=== PATIENT | male | born 1965 | race Caucasian/White ===

== ENCOUNTER 2019-05-01 20:28 | Emergency (ER) | payer SELFPAY ==
[2019-05-01] MEDS ORDERED: ASPIRIN 81 MG TABLET, CHEWABLE PO ONE (20:56)
--- NOTE | 2019-05-01 20:59 | ER Document Report ---
ED Cardiac - General Chief Complaint: Chest Pain Stated Complaint: CHEST PAIN Time Seen by Provider: 05/01/19 20:49 Primary Care Provider: ANNELISE YOUNG MD [ACTIVE STAFF] - 05/03/19 Notes: Patient is a 54-year-old male that comes to the emergency department by EMS for chief complaint of chest pain. Pain is in the left side of his chest and goes towards his shoulder. He states this happened prior to arrival when he was walking. He states he felt slightly nauseated but denies shortness of breath, dizziness, abdominal pain, flank pain. He states that his chest pain has been intermittent. He states he has a history of GA with stents and 1991 in 1995, he is on Plavix, metoprolol, Lipitor, aspirin. He states he follows with medical reimbursement manager Dr. Young. He states he chews dip but denies alcohol or recrea tional drugs. He states that he was released from [facility] yesterday after he had been admitted for chest pain rule out. He did not have a stress test or cardiac catheterization. He states he has not had either of these in over 5 years. TRAVEL OUTSIDE OF THE [place] IN LAST 30 DAYS: No - Related Data Allergies/Adverse Reactions: Penicillins Allergy (Verified 09/12/15 18:47) Past Medical History - General Information source: Patient - Social History Smoking Status: Never Smoker Frequency of alcohol use: None Drug Abuse: None Lives with: Family Family History: CAD, Hypertension - Past Medical History Cardiac Medical History: Reports: Hx Coronary Artery Disease, Hx Hypercholesterolemia, Hx Hypertension Psychiatric Medical History: Denies: Hx Depression Past Surgical History: Reports: Hx Cardiac Surgery - Stent times 3 - Immunizations Hx Diphtheria, Pertussis, Tetanus Vaccination: Yes Hx Pneumococcal Vaccination: 07/27/15 Review of Systems - Review of Systems Constitutional: See HPI EENT: No symptoms reported Cardiovascular: See HPI Respiratory: No symptoms reported Gastrointestinal: No symptoms reported Genitourinary: No symptoms reported Male Genitourinary: No symptoms reported Musculoskeletal: No symptoms reported Skin: No symptoms reported Hematologic/Lymphatic: No symptoms reported Neurological/Psychological: No symptoms reported Physical Exam - Vital signs Vitals: Resp BP Pulse Ox 19 104/84 100 05/01/19 20:32 05/01/19 20:32 05/01/19 20:32 - Notes Notes: GENERAL: Disheveled and dirty, wet from the rain, however does not appear to be in any distress HEAD: Normocephalic, atraumatic. EYES: Pupils equal, round, and reactive to light. Extraocular movements intact. ENT: Oral mucosa moist, tongue midline. Oropharynx unremarkable. Airway patent. Nares patent, no nasal septal hematoma, TM's intact. NECK: Full range of motion. Supple. Trachea midline. LUNGS: Clear to auscultation bilaterally, no wheezes, rales, or rhonchi. No respiratory distress. HEART: Regular rate and rhythm. No murmur ABDOMEN: Soft, non-tender. Non-distended. Bowel sounds present in all 4 quadrants. GENITOURINARY: Deferred EXTREMITIES: Moves all 4 extremities spontaneously. No edema, normal radial and dorsalis pedis pulses bilaterally. No cyanosis. BACK: no cervical, thoracic, lumbar midline tenderness. No saddle anesthesia, normal distal neurovascular exam. Moves all extremities in full range of motion. NEUROLOGICAL: Alert and oriented x3. Normal speech. Cranial nerves II through XII grossly intact. PSYCH: Normal affect, normal mood. SKIN: Warm, dry, normal turgor. No rashes or lesions noted. Course - Re-evaluation Re-evalutation: 05/01/19 22:13 Records show that in 2014 he had a normal stress test with Dr. Young but because of continued chest pain he was transferred to tertiary center for cardiac catheterization. Patient is not clearly remembering his history. Patient is disheveled, appears possibly homeless but he insists that he lives with his sons. Chest x-ray unremarkable. Patient reevaluated to see if he is in pain but he was soundly sleeping. Patient has negative work-up again including 2 more negative troponins. I reevaluated him and he is chest pain-free. He did have elevated CK which is most likely from his walking earlier, he was given IV fluids. He is tolerating fluids well. His vital signs are unremarkable. He got minimally hypotensive when he fell asleep. He states that he has not seen Dr. Young recently but he did see him in the past. Patient just completed an admission with chest pain rule out within the past day. Patient tells me that he called when he "got caught walking in the rain". I did discuss with Dr. Lazo. Recommendation is for patient to follow-up with Dr. Young on Friday for additional evaluation and management and for patient return if he has return or worsening symptoms. I discussed this in detail with patient. Patient does state understanding and agreement with this plan. - Vital Signs Vital signs: Temp Pulse Resp BP Pulse Ox 14 111/62 96 05/02/19 01:01 05/02/19 01:01 05/02/19 01:01 - Laboratory Result Diagrams: 05/01/19 21:57 05/01/19 21:57 Laboratory results interpreted by me: 05/01/19 05/01/19 21:57 21:57 RBC 4.27 L Potassium 3.4 L Creatine Kinase 870 H - EKG Interpretation by Me Additional EKG results interpreted by me: EKG reading that it is defective, however I did check the leads myself in the right and left arm leads were not reversed. Sinus rhythm at a rate of 66. There is an inverted T wave in lead II but no T wave inversions or ST segment changes in consecutive leads.) RBBB but this was present on previous EKG. QTc of 453. Normal axis. Discharge - Discharge Clinical Impression: Elevated CK Chest pain Qualifiers: Chest pain type: unspecified Qualified Code(s): R07.9 - Chest pain, unspecified Condition: Stable Disposition: HOME, SELF-CARE Additional Instructions: Your work-up did not show evidence of damage to your heart. Please follow-up with Dr. Young on Friday for additional evaluation and management. Call the listed referral. You did have muscle protein in your bloodstream, your given IV fluids for this. You need to continue to hydrate at home. Follow-up with primary care for additional management. Return if you worsen including passing out, return for severe pain, difficulty breathing, fever, or any other concerning symptoms. Referrals: ANNELISE YOUNG MD [ACTIVE STAFF] - 05/03/19
--- NOTE | 2019-05-01 21:43 | RADIOLOGY REPORT (SQ) ---
EXAM DESCRIPTION: XR CHEST 1 VIEW COMPLETED DATE/TME: 05/01/2019 20:57 CLINICAL HISTORY: 54 years, Male, chest pain COMPARISON: X-ray chest 09/12/2015 NUMBER OF VIEWS: TECHNIQUE: LIMITATIONS: None. FINDINGS: There is possible emphysema. No evidence of pulmonary infiltrate or pleural effusion. The heart is normal in size. Pulmonary vascularity appears normal. The mediastinum is unremarkable. There is a left-sided dual-chamber pacemaker, a new finding, as compared with the prior study. Once again seen is a left-sided loop recorder device. IMPRESSION: Possible emphysema. copyright 2010 [email or web address]- All Rights Reserved
[2019-05-01 22:11] LABS: ABSOLUTE EOSINOPHILS # (AUTO) 0.3 10^3/uL (0.0-0.6); ABSOLUTE LYMPHOCYTES (AUTO) 1.2 10^3/uL (0.5-4.7); BASOPHILS % (AUTO) 0.6 % (0-2); HEMATOCRIT 39.9 % (37.9-51.0); HEMOGLOBIN 13.5 g/dL (13.5-17.0); LYMPHOCYTES % (AUTO) 15.5 % (13-45); MEAN CORPUSCULAR HEMOGLOBIN 31.7 pg (27.0-33.4); MEAN CORPUSCULAR HGB CONC 33.9 g/dL (32.0-36.0); MEAN CORPUSCULAR VOLUME 93 fl (80-97); MONOCYTES % (AUTO) 12.9 % (3-13); PLATELET COUNT 209 10^3/uL (150-450); RED BLOOD COUNT 4.27 10^6/uL (4.35-5.55); TOTAL CELLS COUNTED % (AUTO) 100 %; WHITE BLOOD COUNT 7.4 10^3/uL (4.0-10.5)
[2019-05-01 22:26] LABS: ALANINE AMINOTRANSFERASE 42 U/L (21-72); ALBUMIN 4.6 g/dL (3.5-5.0); ALKALINE PHOSPHATASE 65 U/L (38-126); ANION GAP 12 (5-19); ASPARTATE AMINO TRANSFERASE 59 U/L (17-59); BILIRUBIN,DIRECT 0.3 mg/dL (0.0-0.4); BILIRUBIN,TOTAL 1.1 mg/dL (0.2-1.3); BLOOD UREA NITROGEN 13 mg/dL (7-20); CALCIUM 9.4 mg/dL (8.4-10.2); CARBON DIOXIDE 27 mmol/L (22-30); CHLORIDE 102 mmol/L (98-107); CREATINE KINASE 870 U/L (55-170); GLUCOSE 93 mg/dL (75-110); POTASSIUM 3.4 mmol/L (3.6-5.0); SODIUM 140.6 mmol/L (137-145); TOTAL PROTEIN 7.7 g/dL (6.3-8.2)
[2019-05-01] MEDS ORDERED: NORMAL SALINE 1000 ML 1,000 ML IV ONE (22:42)
[2019-05-02 01:13] VITALS: BP 111/62
--- NOTE | 2019-05-02 09:50 | EKG REPORT ---
SEVERITY:- DEFECTIVE ECG - SINUS RHYTHM RBBB : Confirmed by: Yenni Villegas 02-May-2019 09:49:52
== END 2019-05-02 08:00 | disposition home or self-care (01) ==
LOC: ER 20:28
DX: R07.9 Chest pain, unspecified (principal); R79.89 Other specified abnormal findings of blood chemistry; R11.0 Nausea; I25.10 Atherosclerotic heart disease of native coronary artery without angina pectoris; E78.00 Pure hypercholesterolemia, unspecified; I10 Essential (primary) hypertension; Z88.0 Allergy status to penicillin
CPT/HCPCS: 93005; 99285; 96360; 36415; 82550; 85025; 80053; 84484; 71045; 93010; J7030

== ENCOUNTER 2019-06-08 16:17 | Observation (INO) | payer SELFPAY ==
[2019-06-08] MEDS ORDERED: ASPIRIN 81 MG TABLET, CHEWABLE PO ONE (18:58)
[2019-06-08] MEDS ORDERED: MORPHINE SULFATE 10 MG/ML INJ IV ONE (19:09)
[2019-06-08] MEDS ORDERED: NITROGLYCERIN 0.4 MG/TAB 25 TAB/BOTTLE SL ONE (19:09)
--- NOTE | 2019-06-08 19:11 | ER Document Report ---
ED Medical Screen (RME) - General Chief Complaint: Chest Pain Stated Complaint: CHEST PAIN Time Seen by Provider: 06/08/19 18:58 TRAVEL OUTSIDE OF THE U.S. IN LAST 30 DAYS: No - HPI Notes: 06/08/19 19:07 54-year-old male with a history of 2 previous MIs presents to the ED for complaints of having left-sided chest pain that radiated to his neck and left arm at approximately 330 this afternoon, he took 0.4 sublingual nitro, was still having pain 5 minutes later, took another 0.4 mL nitro with chest pain relief, patient did experience shortness of breath while having his chest pain. Patient's last cardiac cath was 1995, patient did have a stress test back in 2014, it stated that he did need a cardiac cath, patient never went forward with having a cardiac cath. Patient is a account general manager. Patient at this time reports that he is having chest pain, reports chest pressure squeezing. Patient took 81 mg of baby aspirin today. Patient is a former smoker, quit approximately 16 years ago, reports mother has a history of hypertension, does not know his father. ROS: Other than noted above, the 12 point review of systems was reviewed with the patient and were negative, all pertinent findings are included in the HPI. PHYSICAL EXAMINATION: Vital signs reviewed. GENERAL: Well-appearing, well-nourished and in no acute distress. HEAD: Atraumatic, normocephalic. NECK: Normal range of motion CV: Heart regular rate and rhythm LUNGS: No respiratory distress Musculoskeletal: Normal range of motion NEUROLOGICAL: Normal speech PSYCH: Normal mood, normal affect. MDM: Patient seen and examined for rapid initial assessment. Vital signs reviewed. A comprehensive ED assessment and evaluation of the patient, analysis of test results and completion of the medical decision making process will be conducted by additional ED providers. *Note is created using voice recognition software and may contain spelling, syntax or grammatical errors. Patient with a roomed with a monitor technician prior to nitro 0.4 sublingual administration as well as morphine administration 06/08/19 19:10 - Related Data Allergies/Adverse Reactions: Penicillins Allergy (Verified 06/08/19 16:19) Past Medical History - Social History Chew tobacco use (# tins/day): Yes Frequency of alcohol use: None Drug Abuse: None - Past Medical History Cardiac Medical History: Reports: Hx Coronary Artery Disease, Hx Heart Attack, Hx Hypercholesterolemia, Hx Hypertension Renal/ Medical History: Denies: Hx Peritoneal Dialysis Psychiatric Medical History: Denies: Hx Depression Past Surgical History: Reports: Hx Cardiac Surgery - Stent times 3 - Immunizations Hx Diphtheria, Pertussis, Tetanus Vaccination: Yes Physical Exam - Vital signs Vitals: Temp Pulse Resp BP Pulse Ox 98.8 F 73 16 122/74 96 06/08/19 16:40 06/08/19 16:40 06/08/19 16:40 06/08/19 16:40 06/08/19 16:40 Course - Vital Signs Vital signs: Temp Pulse Resp BP Pulse Ox 98.8 F 73 16 122/74 96 06/08/19 16:40 06/08/19 16:40 06/08/19 16:40 06/08/19 16:40 06/08/19 16:40
[2019-06-08 19:46] LABS: ABSOLUTE BASOPHILS # (AUTO) 0.1 10^3/uL (0.0-0.2); ABSOLUTE EOSINOPHILS # (AUTO) 0.2 10^3/uL (0.0-0.6); ABSOLUTE LYMPHOCYTES (AUTO) 0.9 10^3/uL (0.5-4.7); ABSOLUTE MONOCYTES (AUTO) 0.6 10^3/uL (0.1-1.4); ABSOLUTE NEUT (AUTO) 3.4 10^3/uL (1.7-8.2); BASOPHILS % (AUTO) 1.2 % (0-2); EOSINOPHILS % (AUTO) 4.4 % (0-6); HEMOGLOBIN 14.9 g/dL (13.5-17.0); LYMPHOCYTES % (AUTO) 16.8 % (13-45); MEAN CORPUSCULAR HEMOGLOBIN 31.3 pg (27.0-33.4); MEAN CORPUSCULAR HGB CONC 33.2 g/dL (32.0-36.0); MEAN CORPUSCULAR VOLUME 94 fl (80-97); MONOCYTES % (AUTO) 11.4 % (3-13); PLATELET COUNT 249 10^3/uL (150-450); RED BLOOD COUNT 4.77 10^6/uL (4.35-5.55); RED CELL DISTRIBUTION WIDTH 13.9 % (11.5-14.0); SEGMENTED NEUTROPHILS % (AUTO) 66.2 % (42-78); TOTAL CELLS COUNTED % (AUTO) 100 %; WHITE BLOOD COUNT 5.2 10^3/uL (4.0-10.5)
[2019-06-08 20:06] LABS: ALBUMIN 5.1 g/dL (3.5-5.0); ALKALINE PHOSPHATASE 66 U/L (38-126); ANION GAP 11 (5-19); ASPARTATE AMINO TRANSFERASE 42 U/L (17-59); BILIRUBIN,DIRECT 0.4 mg/dL (0.0-0.4); BLOOD UREA NITROGEN 20 mg/dL (7-20); CALCIUM 10.2 mg/dL (8.4-10.2); CARBON DIOXIDE 28 mmol/L (22-30); CHLORIDE 103 mmol/L (98-107); CREATINE KINASE 135 U/L (55-170); GLUCOSE 96 mg/dL (75-110); POTASSIUM 4.8 mmol/L (3.6-5.0); TOTAL PROTEIN 8.8 g/dL (6.3-8.2)
[2019-06-08 20:16] LABS: CREATINE KINASE MB 0.46 ng/mL (<4.55); TROPONIN I < 0.012 ng/mL
--- NOTE | 2019-06-08 20:53 | RADIOLOGY REPORT (SQ) ---
EXAM DESCRIPTION: XR CHEST 1 VIEW COMPLETED DATE/TME: 06/08/2019 18:59 CLINICAL HISTORY: 54 years, Male, cp COMPARISON: 05/01/2019. NUMBER OF VIEWS: 1 TECHNIQUE: Frontal view of the chest was obtained in AP portable technique. LIMITATIONS: None. FINDINGS: Stable cardiac and mediastinal silhouette. Heart size is normal. Battery pack overlies the cardiac silhouette. Pacemaker device overlies and obscures portions of the the LEFT hemithorax with leads intact at the level of the battery pack, stable in course and termination. Lungs are clear without focal opacity, pneumothorax or pleural effusions. The visualized bones are within normal limits. IMPRESSION: No acute cardiopulmonary abnormalities. copyright 2010 [employer]- All Rights Reserved
--- NOTE | 2019-06-08 21:46 | ER Document Report ---
ED Cardiac - General Chief Complaint: Chest Pain Stated Complaint: CHEST PAIN Time Seen by Provider: 06/08/19 18:58 Primary Care Provider: SINAN SEAMAN MD [Primary Care Provider] - Follow up as needed Notes: RME NOTE: 54-year-old male with a history of 2 previous MIs presents to the ED for complaints of having left-sided chest pain that radiated to his neck and left arm at approximately 330 this afternoon, he took 0.4 sublingual nitro, was still having pain 5 minutes later, took another 0.4 mL nitro with chest pain relief, patient did experience shortness of breath while having his chest pain. Patient's last cardiac cath was 1995, patient did have a stress test back in 2014, it stated that he did need a cardiac cath, patient never went forward with having a cardiac cath. 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 Patient at this time reports that he is having chest pain, reports chest pressure squeezing. Patient took 81 mg of baby aspirin today. Patient is a former smoker, quit approximately 16 years ago, reports mother has a history of hypertension, does not know his father. MY HPI: Upon my assessment of the patient he has received an additional sublingual nitroglycerin in the emergency department, aspirin, morphine. Patient states he is currently chest pain-free. Patient states he believes his gas load dispatcher is Dr. Villegas but he is unsure of his primary care provider's name. States he takes Plavix, metoprolol, Lipitor, aspirin on a daily basis, history of hypertension, hyperlipidemia, coronary artery disease with stent placement. TRAVEL OUTSIDE OF THE [place]. IN LAST 30 DAYS: No - Related Data Allergies/Adverse Reactions: Penicillins Allergy (Verified 06/08/19 16:19) Past Medical History - General Information source: Patient, [facility] Records - Social History Smoking Status: Former Smoker Chew tobacco use (# tins/day): Yes Frequency of alcohol use: None Drug Abuse: None Family History: CAD, Hypertension Patient has suicidal ideation: No Patient has homicidal ideation: No - Past Medical History Cardiac Medical History: Reports: Hx Coronary Artery Disease, Hx Heart Attack, Hx Hypercholesterolemia, Hx Hypertension Renal/ Medical History: Denies: Hx Peritoneal Dialysis Psychiatric Medical History: Denies: Hx Depression Past Surgical History: Reports: Hx Cardiac Surgery - Stent times 3 - Immunizations Hx Diphtheria, Pertussis, Tetanus Vaccination: Yes Hx Pneumococcal Vaccination: 07/27/15 Review of Systems - Review of Systems Constitutional: denies: Fever EENT: No symptoms reported Cardiovascular: See HPI Respiratory: See HPI Gastrointestinal: No symptoms reported Genitourinary: No symptoms reported Male Genitourinary: No symptoms reported Musculoskeletal: No symptoms reported Skin: No symptoms reported Hematologic/Lymphatic: No symptoms reported Neurological/Psychological: No symptoms reported Physical Exam - Vital signs Vitals: Temp Pulse Resp BP Pulse Ox 98.8 F 73 16 122/74 96 06/08/19 16:40 06/08/19 16:40 06/08/19 16:40 06/08/19 16:40 06/08/19 16:40 - Notes Notes: GENERAL: Alert, interacts well. No acute distress. HEAD: Normocephalic, atraumatic. EYES: Pupils equal, round, and reactive to light. Extraocular movements intact. ENT: Oral mucosa moist, tongue midline. NECK: Full range of motion. Supple. Trachea midline. LUNGS: Clear to auscultation bilaterally, no wheezes, rales, or rhonchi. No respiratory distress. HEART: Regular rate and rhythm. No murmur Chest: No crepitus felt, no erythema/ecchymosis noted anterior posterior chest w all ABDOMEN: Soft, non-tender. Non-distended. Bowel sounds present in all 4 quadrants. EXTREMITIES: Moves all 4 extremities spontaneously. No edema, normal radial and dorsalis pedis pulses bilaterally. No cyanosis. BACK: no cervical, thoracic, lumbar midline tenderness. No saddle anesthesia, normal distal neurovascular exam. NEUROLOGICAL: Alert and oriented x3. Normal speech. cranial nerves II through XII grossly intact PSYCH: Normal affect, normal mood. SKIN: Warm, dry, normal turgor. No rashes or lesions noted. Course - Re-evaluation Re-evalutation: 06/08/19 21:53 Laboratory 06/08/19 06/08/19 06/08/19 19:20 19:20 19:20 WBC 5.2 RBC 4.77 Hgb 14.9 Hct 45.0 MCV 94 MCH 31.3 MCHC 33.2 RDW 13.9 Plt Count 249 Seg Neutrophils % 66.2 Lymphocytes % 16.8 Monocytes % 11.4 Eosinophils % 4.4 Basophils % 1.2 Absolute Neutrophils 3.4 Absolute Lymphocytes 0.9 Absolute Monocytes 0.6 Absolute Eosinophils 0.2 Absolute Basophils 0.1 Sodium 141.5 Potassium 4.8 Chloride 103 Carbon Dioxide 28 Anion Gap 11 BUN 20 Creatinine 1.24 Est GFR ( Amer) > 60 Est GFR (Non-Af Amer) > 60 Glucose 96 Calcium 10.2 Total Bilirubin 1.0 Direct Bilirubin 0.4 Neonat Total Bilirubin Not Reportable Neonat Direct Bilirubin Not Reportable Neonat Indirect Bili Not Reportable AST 42 ALT 32 Alkaline Phosphatase 66 Creatine Kinase 135 CK-MB (CK-2) 0.46 Troponin I < 0.012 Total Protein 8.8 H Albumin 5.1 H Chest X-Ray 06/08/19 18:59 IMPRESSION: No acute cardiopulmonary abnormalities. copyright 2010 [employer] All Rights Reserved Based on patient's past medical history I discussed this case with hospitalist Dr. Angel who will admit the patient for chest pain rule out. Patient continues to deny any chest pain at this time. Resting comfortably watching TV. Patient is currently admitted to Dr. Angel on a telemetry bed. 06/08/19 21:54 EKG shows a sinus rhythm rate of 76, QTc 441, right bundle branch block which is consistent with old EKG. No ST segment elevations noted. - Vital Signs Vital signs: Temp Pulse Resp BP Pulse Ox 98.8 F 73 16 122/74 96 06/08/19 16:40 06/08/19 16:40 06/08/19 16:40 06/08/19 16:40 06/08/19 16:40 - Laboratory Result Diagrams: 06/08/19 19:20 06/08/19 19:20 Laboratory results interpreted by me: 06/08/19 19:20 Total Protein 8.8 H Albumin 5.1 H Discharge - Discharge Clinical Impression: Chest pain Qualifiers: Chest pain type: unspecified Qualified Code(s): R07.9 - Chest pain, unspecified Condition: Stable Disposition: ADMITTED INPATIENT Admitting Provider: Stanley (Hospitalist) Unit Admitted: Telemetry Referrals: SINAN SEAMAN MD [Primary Care Provider] - Follow up as needed
[2019-06-08 22:02] LABS: INTERNATIONAL RATION (INR) 1.04; PROTHROMBIN TIME 13.6 SEC (11.4-15.4)
[2019-06-08 22:03] LABS: PARTIAL THROMBOPLASTIN TIME 35.9 SEC (23.5-35.8)
[2019-06-08] MEDS ORDERED: DEXTROSE 40% GEL 15 GM TUBE PO PRN ×2 (22:40)
[2019-06-08] MEDS ORDERED: ACETAMINOPHEN 325 MG TABLET PO PRN (22:40)
[2019-06-08] MEDS ORDERED: GLUCAGON,HUMAN RECOMB 1 MG INJ SUBCUT PRN (22:40)
[2019-06-08] MEDS ORDERED: DEXTROSE 50%-WATER 25 GM/50 ML DISP.SYRIN IV PRN ×2 (22:40)
--- NOTE | 2019-06-08 22:57 | PDOC H&P ---
History of Present Illness Admission Date/PCP: 06/08/19 22:08 SINAN SEAMAN MD History of Present Illness: CLAY DC is a 54 year old male with a history of coronary artery dise ase with 2 stents in the late somewhere in [place] who presents with chest pain. 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 He said it lasted about 5 to 10 minutes. It resolved with a couple of tablets of nitroglycerin. He is been pain-free since. He was here in 2014 with chest pain had a stress test that was negative but was transferred to [place] because he was continuing to have pain. He said when he got to [place] they decided not to cath him. He said he has not had any further work-up since then. He quit smoking 16 years ago. He uses smokeless tobacco now. He denies use of any other drugs or excessive alcohol consumption. He is being admitted for monitoring and a stress test. Past Medical History Cardiac Medical History: Reports: Coronary Artery Disease, Myocardial Infarction, Hyperlipidema, Hypertension Psychiatric Medical History: Denies: Depression Social History Smoking Status: Former Smoker Frequency of Alcohol Use: None Hx Recreational Drug Use: No Hx Prescription Drug Abuse: No Family History Family History: CAD, Hypertension Parental Family History Reviewed: Yes - CAD, hypertension Children Family History Reviewed: NA Sibling(s) Family History Reviewed.: Unknown Medication/Allergy Home Medications: Aspirin [Aspirin 81 mg Chewable Tablet] 81 mg PO DAILY 09/12/15 Atorvastatin Calcium [Lipitor 40 mg Tablet] 40 mg PO QHS 09/12/15 Clopidogrel Bisulfate [Plavix 75 mg Tablet] 75 mg PO DAILY 09/12/15 Metoprolol Tartrate [Lopressor 25 mg Tablet] 25 mg PO DAILY 09/12/15 Allergies/Adverse Reactions: Penicillins Allergy (Verified 06/08/19 16:19) Review of Systems All systems: reviewed and no additional remarkable complaints except as stated - All systems were reviewed and were negative except as noted above Physical Exam Vital Signs: Temp Pulse Resp BP Pulse Ox 98.8 F 73 16 122/74 96 06/08/19 16:40 06/08/19 16:40 06/08/19 16:40 06/08/19 16:40 06/08/19 16:40 Intake & Output 06/07/19 06/08/19 06/09/19 06:59 06:59 06:59 Weight 70.2 kg General appearance: PRESENT: no acute distress, cooperative, disheveled, thin Head exam: PRESENT: atraumatic, normocephalic Eye exam: PRESENT: EOMI, PERRLA. ABSENT: conjunctival injection, nystagmus, scleral icterus Ear exam: PRESENT: normal external ear exam Mouth exam: PRESENT: moist, neck supple Teeth exam: PRESENT: poor dentation Throat exam: ABSENT: post pharyngeal erythema Neck exam: PRESENT: full ROM. ABSENT: carotid bruit, JVD, lymphadenopathy, meningismus, tenderness, thyromegaly Respiratory exam: PRESENT: clear to auscultation anais, symmetrical, unlabored, other - Pacemaker noted left upper chest. ABSENT: accessory muscle use, chest wall tenderness, crackles, prolonged expiratory phas, rhonchi, tachypnea, wheezes Cardiovascular exam: PRESENT: RRR, +S1, +S2. ABSENT: diastolic murmur, systolic murmur Pulses: PRESENT: normal carotid pulses Vascular exam: PRESENT: normal capillary refill GI/Abdominal exam: PRESENT: normal bowel sounds, soft. ABSENT: distended, guarding, rebound, tenderness Rectal exam: PRESENT: deferred Extremities exam: ABSENT: clubbing, pedal edema Musculoskeletal exam: PRESENT: ambulatory, normal inspection. ABSENT: deformity Neurological exam: PRESENT: alert, awake, oriented to person, oriented to place, oriented to situation, CN II-XII grossly intact. ABSENT: motor sensory deficit Psychiatric exam: PRESENT: flat affect, normal mood Skin exam: PRESENT: dry, warm Results Laboratory Results: 06/08/19 19:20 06/08/19 19:20 06/08/19 06/08/19 19:20 19:20 WBC 5.2 RBC 4.77 Hgb 14.9 Hct 45.0 MCV 94 MCH 31.3 MCHC 33.2 RDW 13.9 Plt Count 249 Seg Neutrophils % 66.2 Lymphocytes % 16.8 Monocytes % 11.4 Eosinophils % 4.4 Basophils % 1.2 Absolute Neutrophils 3.4 Absolute Lymphocytes 0.9 Absolute Monocytes 0.6 Absolute Eosinophils 0.2 Absolute Basophils 0.1 Sodium 141.5 Potassium 4.8 Chloride 103 Carbon Dioxide 28 Anion Gap 11 BUN 20 Creatinine 1.24 Est GFR ( Amer) > 60 Est GFR (Non-Af Amer) > 60 Glucose 96 Calcium 10.2 Total Bilirubin 1.0 AST 42 Alkaline Phosphatase 66 Total Protein 8.8 H Albumin 5.1 H 06/08/19 06/08/19 19:20 19:20 Creatine Kinase 135 CK-MB (CK-2) 0.46 Troponin I < 0.012 Impressions: Chest X-Ray 06/08/19 18:59 IMPRESSION: No acute cardiopulmonary abnormalities. copyright 2011 [employer]- All Rights Reserved Assessment and Plan - Diagnosis (1) Chest pain Qualifiers: Chest pain type: chest pain due to myocardial ischemia Ischemic chest pain type: stable angina pectoris Qualified Code(s): I20.8 - Other forms of angina pectoris Is this a current diagnosis for this admission?: Yes Plan: Put him on telemetry and do serial cardiac enzymes. Plan for a stress test t omorrow morning. (2) Coronary artery disease Qualifiers: Coronary Disease-Associated Artery/Lesion type: [place] artery [place] vs. transplanted heart: [place] heart Associated angina: with unspecified angina Qualified Code(s): I25.119 - Atherosclerotic heart disease of [place] coronary artery with unspecified angina pectoris Is this a current diagnosis for this admission?: Yes Plan: We will continue his Plavix and atorvastatin. He does have evidence of an old left bundle branch block on his EKG. EKG did appear to be essentially unchanged from the most recent one we had for him. (3) Pacemaker Is this a current diagnosis for this admission?: Yes Plan: He said he had bradycardia and told me that it was actually defibrillator, but on chest x-ray is obvious that is just a pacemaker. He is not in a paced rhythm on the monitor. (4) Dyslipidemia Is this a current diagnosis for this admission?: Yes Plan: Continue Lipitor (5) Hypertension Qualifiers: Hypertension type: essential hypertension Qualified Code(s): I10 - Essential (primary) hypertension Is this a current diagnosis for this admission?: Yes Plan: We will continue his Lopressor and lisinopril. Beta-blockers being held until after his stress test. (6) Tobacco abuse Is this a current diagnosis for this admission?: Yes Plan: Strongly encourage cessation - Time Time Spent with patient: 35 or more minutes
[2019-06-09 07:46] LABS: HEMATOCRIT 38.9 % (37.9-51.0); HEMOGLOBIN 13.2 g/dL (13.5-17.0); MEAN CORPUSCULAR HEMOGLOBIN 31.6 pg (27.0-33.4); MEAN CORPUSCULAR HGB CONC 33.9 g/dL (32.0-36.0); MEAN CORPUSCULAR VOLUME 93 fl (80-97); PLATELET COUNT 203 10^3/uL (150-450); RED BLOOD COUNT 4.17 10^6/uL (4.35-5.55); RED CELL DISTRIBUTION WIDTH 13.7 % (11.5-14.0); WHITE BLOOD COUNT 4.9 10^3/uL (4.0-10.5)
[2019-06-09 08:06] LABS: ANION GAP 9 (5-19); BLOOD UREA NITROGEN 18 mg/dL (7-20); CALCIUM 9.5 mg/dL (8.4-10.2); CARBON DIOXIDE 25 mmol/L (22-30); CHLORIDE 104 mmol/L (98-107); CHOLESTEROL 148.61 mg/dL (0-200); GLUCOSE 87 mg/dL (75-110); TRIGLYCERIDES 84 mg/dL (<150)
[2019-06-09 08:17] LABS: DIRECT LDL 79 mg/dL (<100)
[2019-06-09] MEDS ORDERED: REGADENOSON INJ 0.4 MG/5 ML DISP.SYRIN IV ONE (10:00)
[2019-06-09 10:10] LABS: APPEARANCE,URINE CLEAR; BILIRUBIN,URINE NEGATIVE (NEGATIVE); COLOR,URINE YELLOW; GLUCOSE, URINE NEGATIVE (NEGATIVE); KETONES,URINE NEGATIVE (NEGATIVE); LEUKOCYTE ESTERASE,URINE NEGATIVE (NEGATIVE); NITRITE,URINE NEGATIVE (NEGATIVE); PROTEIN,URINE NEGATIVE (NEGATIVE); URINE SPECIFIC GRAVITY 1.019; UROBILINOGEN,URINE NEGATIVE mg/dL (<2.0)
--- NOTE | 2019-06-09 14:53 | EKG REPORT ---
SEVERITY:- ABNORMAL ECG - ATRIAL-PACED RHYTHM RIGHT BUNDLE BRANCH BLOCK : Confirmed by: Yenni Villegas 09-Jun-2019 14:53:17
--- NOTE | 2019-06-09 14:54 | EKG REPORT ---
SEVERITY:- ABNORMAL ECG - SINUS RHYTHM RBBB AND LPFB : Confirmed by: Yenni Villegas 09-Jun-2019 14:53:25
[2019-06-09 15:50] VITALS: BP 111/63
--- NOTE | 2019-06-09 17:50 | PDOC DISCHARGE SUMMARY ---
General - Admit/Disc Date/PCP Admission Date/Primary Care Provider: 06/08/19 22:08 SINAN SEAMAN MD Discharge Date: 06/09/19 - Discharge Diagnosis (1) Chest pain Is this a current diagnosis for this admission?: Yes (2) Coronary artery disease Is this a current diagnosis for this admission?: Yes (3) Dyslipidemia Is this a current diagnosis for this admission?: Yes (4) Hypertension Is this a current diagnosis for this admission?: Yes - Additional Information Resuscitation Status: Full Code Prescriptions: Pantoprazole Sodium [Protonix [address] Tablet] 40 mg PO QAM #30 tablet. Home Medications: Aspirin [Aspirin 81 mg Chewable Tablet] 81 mg PO DAILY 06/09/19 Atorvastatin Calcium [Lipitor 40 mg Tablet] 40 mg PO QHS 06/09/19 Clopidogrel Bisulfate [Plavix 75 mg Tablet] 75 mg PO DAILY 06/09/19 Metoprolol Tartrate [Lopressor 25 mg Tablet] 25 mg PO DAILY 06/09/19 Pantoprazole Sodium [Protonix [address] Tablet] 40 mg PO QAM #30 tablet. 06/09/19 History of Present Illness History of Present Illness: Admitting hospitalist's H&P: CLAY DC is a 54 year old male with a history of coronary artery disease with 2 stents in the late somewhere in [place] who presents with chest pain. 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 He said it lasted about 5 to 10 minutes. It resolved with a couple of tablets of nitroglycerin. He is been pain-free since. He was here in 2014 with chest pain had a stress test that was negative but was transferred to [place] because he was continuing to have pain. He said when he got to [place] they decided not to cath him. He said he has not had any further work-up since then. He quit smoking 16 years ago. He uses smokeless tobacco now. He denies use of any other drugs or excessive alcohol consumption. He is being admitted for monitoring and a stress test. Hospital Course Hospital Course: Patient is a 54-year-old with past medical history of CAD and prior AICD placement who presented with left sided chest pain radiating to the left arm. He was admitted to rule out ACS. His EKG and troponins were cycled and unremarkable. He underwent stress testing which came back normal. He has been chest pain-free today. He will be discharged on a short-term trial of PPI. He will closely follow-up with his PCP and rehabilitation counsellor. Physical Exam Vital Signs: Temp Pulse Resp BP Pulse Ox 97.3 F 72 16 111/63 100 06/09/19 15:50 06/09/19 15:50 06/09/19 15:50 06/09/19 15:50 06/09/19 15:50 Intake & Output 06/08/19 06/09/19 06/10/19 06:59 06:59 06:59 Intake Total 0 657 Output Total 825 Balance 0 -168 Weight 141 lb 5.061 oz General appearance: PRESENT: no acute distress, well-developed, well-nourished Head exam: PRESENT: atraumatic, normocephalic Eye exam: PRESENT: conjunctiva pink, EOMI, PERRLA. ABSENT: scleral icterus Ear exam: PRESENT: normal external ear exam Mouth exam: PRESENT: moist, tongue midline Neck exam: ABSENT: carotid bruit, JVD, lymphadenopathy, thyromegaly Respiratory exam: PRESENT: clear to auscultation anais. ABSENT: rales, rhonchi, wheezes Cardiovascular exam: PRESENT: RRR. ABSENT: diastolic murmur, rubs, systolic murmur Pulses: PRESENT: normal dorsalis pedis pul GI/Abdominal exam: PRESENT: normal bowel sounds, soft. ABSENT: distended, guarding, mass, organolmegaly, rebound, tenderness Rectal exam: PRESENT: deferred Extremities exam: PRESENT: full ROM. ABSENT: calf tenderness, clubbing, pedal edema Neurological exam: PRESENT: alert, awake, oriented to person, oriented to place, oriented to time, oriented to situation, CN II-XII grossly intact. ABSENT: motor sensory deficit Results Laboratory Results: 06/09/19 07:27 06/09/19 07:27 06/08/19 06/08/19 06/09/19 19:20 19:20 07:27 WBC 5.2 4.9 RBC 4.77 4.17 L Hgb 14.9 13.2 L Hct 45.0 38.9 MCV 94 93 MCH 31.3 31.6 MCHC 33.2 33.9 RDW 13.9 13.7 Plt Count 249 203 Seg Neutrophils % 66.2 Lymphocytes % 16.8 Monocytes % 11.4 Eosinophils % 4.4 Basophils % 1.2 Absolute Neutrophils 3.4 Absolute Lymphocytes 0.9 Absolute Monocytes 0.6 Absolute Eosinophils 0.2 Absolute Basophils 0.1 Sodium 141.5 Potassium 4.8 Chloride 103 Carbon Dioxide 28 Anion Gap 11 BUN 20 Creatinine 1.24 Est GFR ( Amer) > 60 Est GFR (Non-Af Amer) > 60 Glucose 96 Calcium 10.2 Total Bilirubin 1.0 AST 42 Alkaline Phosphatase 66 Total Protein 8.8 H Albumin 5.1 H Triglycerides Cholesterol LDL Cholesterol Direct VLDL Cholesterol HDL Cholesterol Urine Color Urine Appearance Urine pH Ur Specific [place] Urine Protein Urine Glucose (UA) Urine Ketones Urine Blood Urine Nitrite Ur Leukocyte Esterase Urine WBC (Auto) Urine RBC (Auto) 06/09/19 06/09/19 07:27 09:55 WBC RBC Hgb Hct MCV MCH MCHC RDW Plt Count Seg Neutrophils % Lymphocytes % Monocytes % Eosinophils % Basophils % Absolute Neutrophils Absolute Lymphocytes Absolute Monocytes Absolute Eosinophils Absolute Basophils Sodium 137.7 Potassium 4.0 Chloride 104 Carbon Dioxide 25 Anion Gap 9 BUN 18 Creatinine 1.01 Est GFR ( Amer) > 60 Est GFR (Non-Af Amer) > 60 Glucose 87 Calcium 9.5 Total Bilirubin AST Alkaline Phosphatase Total Protein Albumin Triglycerides 84 Cholesterol 148.61 LDL Cholesterol Direct 79 VLDL Cholesterol 17.0 HDL Cholesterol 58 Urine Color YELLOW Urine Appearance CLEAR Urine pH 6.0 Ur Specific [place] 1.019 Urine Protein NEGATIVE Urine Glucose (UA) NEGATIVE Urine Ketones NEGATIVE Urine Blood NEGATIVE Urine Nitrite NEGATIVE Ur Leukocyte Esterase NEGATIVE Urine WBC (Auto) 2 Urine RBC (Auto) 0 06/08/19 06/08/19 06/09/19 19:20 19:20 01:29 Creatine Kinase 135 CK-MB (CK-2) 0.46 Troponin I < 0.012 < 0.012 06/09/19 06/09/19 07:27 13:27 Creatine Kinase CK-MB (CK-2) Troponin I < 0.012 < 0.012 Impressions: Chest X-Ray 06/08/19 18:59 IMPRESSION: No acute cardiopulmonary abnormalities. copyright 2010 [employer]- All Rights Reserved Qualifiers - * PATIENT BEING DISCHARGED WITH ANY OF THE FOLLOWING DIAGNOSIS: No Acute Heart Failure - Is this a Heart Failure Patient?: No LVEF < 40%?: No- if no continue to question #3 3. Anticoagulant therapy for permanect/persistent/paraoxysmal Afib or Aflutter: N/A
--- NOTE | 2019-06-13 21:34 | DRAGON STRESS TEST REPORT ---
Intravenous Lexiscan Cardiolite stress test using single photon emmision computerized tomography. Date of procedure: 06/09/2019.Ordering Provider: Dr. Elian Angel. Patient's status: NCAT patient Indication: Chest pain in the patient with a history of coronary artery disease, and history of right coronary artery stent placement.. Coronary risk factors: Age, hypertension, and dyslipidemia. Resting EKG: Sinus Rhythm. EKG Within Normal Limits. Stress EKG: No changes of ischemia. The patient had no chest pain or discomfort, and there were no arrhythmias seen. Reason for termination: Protocol. Conclusions: Normal EKG and hemodynamic response to IV Lexiscan. Nuclear data: At rest the patient was given 10.84 millicuries of technetium 99m sestamibi injected intravenously. As per protocol rest non gated SPECT images were obtained. Subsequently the patient was given intravenous Lexiscan at a dose of 0.4 mg in 5 mL intravenously, followed by flush with normal saline. Subsequently the stress dose of 30.6 millicuries of technetium 99m sestamibi was injected intravenously. As per protocol stress gated images were obtained. Nuclear interpretation: Review of images showed that there was bowel contamination artifact of the basal inferior wall in the both the stress and rest images. This area had normal contraction and thickening by gated study. Hence this is soft tissue attenuation artifact. The rest of the segments of the myocardium had normal perfusion at rest, and normal perfusion post stress with IV Lexiscan. All segments of the myocardium had normal motion, contraction, and thickening by gated study. T. I D. ratio was normal at . There is no transient ischemic dilatation of the left ventricle. Computer read rest, and stress left ventricular ejection fraction were 54 %, and 57 %, respectively. Visually both the stress and rest ejection fractions were normal, and greater than 55%. Conclusion: 1. There is no scintigraphic evidence of Lexiscan induced myocardial ischemia. 2. There is no scintigraphic evidence of myocardial infarction/scar. 3. There is soft tissue attenuation artifact of the basal inferior wall. Recommendations: 1. Correlate clinically. Maximize anti-CAD medication. 2. Aggressive risk factor modification, and treating the underlying co- morbidities. 3. Close cardiology follow-up as an outpatient. MARTIN
== END 2019-06-09 19:00 | disposition home or self-care (01) ==
LOC: ER 16:17 → INTOOBSV 22:08 → EH 22:08 → 4S 06-09 00:55
PROVIDERS: ADMIT Family Medicine; ATTEND Family Medicine
DX: R07.9 Chest pain, unspecified (principal); I25.118 Atherosclerotic heart disease of native coronary artery with other forms of angina pectoris; E78.5 Hyperlipidemia, unspecified; R06.02 Shortness of breath; I10 Essential (primary) hypertension; I25.2 Old myocardial infarction; Z72.0 Tobacco use; Z79.82 Long term (current) use of aspirin; Z79.899 Other long term (current) drug therapy; Z95.5 Presence of coronary angioplasty implant and graft; Z95.810 Presence of automatic (implantable) cardiac defibrillator; Z82.49 Family history of ischemic heart disease and other diseases of the circulatory system; Z79.02 Long term (current) use of antithrombotics/antiplatelets
CPT/HCPCS: 93005 ×2; 99285; 96374; 36415 ×2; 82553; 82550; 85025; 85027; 85610; 85730; 80048; 80053; 81001; 84484 ×2; 80061; 93017; 71045; 78452; 93010 ×2; G0378 ×3; A9500; J2785; J2270; Q9969

== ENCOUNTER 2019-06-24 22:47 | Emergency (ER) | payer OTHER ==
--- NOTE | 2019-06-24 23:43 | EKG REPORT ---
SEVERITY:- ABNORMAL ECG - ATRIAL-PACED RHYTHM RBBB AND LPFB : Confirmed by: Enrique Hernandez MD 24-Jun-2019 23:42:20
--- NOTE | 2019-06-24 23:48 | RADIOLOGY REPORT (SQ) ---
EXAM DESCRIPTION: XR CHEST 2 VIEWS COMPLETED DATE/TME: 06/24/2019 00:00 CLINICAL HISTORY: 54 years, Male, cp COMPARISON: Multiple priors, most recent from 06/08/2019 NUMBER OF VIEWS: Two TECHNIQUE: Frontal and lateral radiographs of the chest were obtained. LIMITATIONS: None. FINDINGS: Left subclavian approach dual lead cardiac pacer is unchanged in position. Cardiac and mediastinal contours are stable. Lungs are clear. No pleural effusion or pneumothorax. IMPRESSION: No acute disease. copyright 2010 [employer]- All Rights Reserved
[2019-06-25 01:23] LABS: ABSOLUTE BASOPHILS # (AUTO) 0.1 10^3/uL (0.0-0.2); ABSOLUTE EOSINOPHILS # (AUTO) 0.2 10^3/uL (0.0-0.6); ABSOLUTE MONOCYTES (AUTO) 0.6 10^3/uL (0.1-1.4); ABSOLUTE NEUT (AUTO) 3.4 10^3/uL (1.7-8.2); BASOPHILS % (AUTO) 1.2 % (0-2); EOSINOPHILS % (AUTO) 3.9 % (0-6); HEMATOCRIT 39.3 % (37.9-51.0); HEMOGLOBIN 13.3 g/dL (13.5-17.0); MEAN CORPUSCULAR HEMOGLOBIN 31.4 pg (27.0-33.4); MEAN CORPUSCULAR HGB CONC 33.9 g/dL (32.0-36.0); MEAN CORPUSCULAR VOLUME 93 fl (80-97); MONOCYTES % (AUTO) 11.4 % (3-13); PLATELET COUNT 145 10^3/uL (150-450); RED BLOOD COUNT 4.24 10^6/uL (4.35-5.55); RED CELL DISTRIBUTION WIDTH 13.2 % (11.5-14.0); SEGMENTED NEUTROPHILS % (AUTO) 64.5 % (42-78); TOTAL CELLS COUNTED % (AUTO) 100 %; WHITE BLOOD COUNT 5.3 10^3/uL (4.0-10.5)
[2019-06-25 01:44] LABS: ALBUMIN 4.4 g/dL (3.5-5.0); ALKALINE PHOSPHATASE 56 U/L (38-126); ANION GAP 10 (5-19); ASPARTATE AMINO TRANSFERASE 19 U/L (17-59); BILIRUBIN,DIRECT 0.3 mg/dL (0.0-0.4); BILIRUBIN,TOTAL 0.6 mg/dL (0.2-1.3); BLOOD UREA NITROGEN 15 mg/dL (7-20); CALCIUM 9.6 mg/dL (8.4-10.2); CARBON DIOXIDE 28 mmol/L (22-30); CHLORIDE 102 mmol/L (98-107); CREATINE KINASE 92 U/L (55-170); GLUCOSE 94 mg/dL (75-110); POTASSIUM 4.1 mmol/L (3.6-5.0); TOTAL PROTEIN 7.3 g/dL (6.3-8.2)
[2019-06-25 01:52] LABS: CREATINE KINASE MB 0.22 ng/mL (<4.55)
[2019-06-25 01:57] LABS: TROPONIN I < 0.012 ng/mL
--- NOTE | 2019-06-25 05:37 | ER Document Report ---
ED Cardiac - General Chief Complaint: Chest Pain Stated Complaint: CHEST PAIN Time Seen by Provider: 06/25/19 03:36 Primary Care Provider: LEEANN CANALES MD [Primary Care Provider] - Follow up as needed Notes: 54-year-old male with a history of 2 previous MIs presents to the ED for complaints of having left-sided chest pain that radiated to his neck and left arm at approximately 1500 this afternoon. pt. did not experience shortness of breath while having his chest pain. Patient is currently under the care of [facility] office in [facility]. Patient was recently admitted to this facility on 06/09/2019 for chest pain rule out. Patient underwent multiple negative troponins and a negative cardiac stress test. Patient states he did follow-up with financial investment manager Dr. Villegas. States he continues to take Plavix, metoprolol, Lipitor, aspirin on a daily basis. Past medical history of hypertension, hyperlipidemia, coronary artery disease with stent placement. EMS provided the patient with aspirin and 1 sublingual nitro. Upon my evaluation of the patient he is denying any chest pain. Patient is playing with the [employer] for the television with a smile on his face. TRAVEL OUTSIDE OF THE [place] IN LAST 30 DAYS: No - Related Data Allergies/Adverse Reactions: Penicillins Allergy (Verified 06/08/19 16:19) Past Medical History - General Information source: Patient - Social History Smoking Status: Former Smoker Chew tobacco use (# tins/day): Yes Frequency of alcohol use: None Drug Abuse: None Family History: CAD, Hypertension Patient has suicidal ideation: No Patient has homicidal ideation: No - Past Medical History Cardiac Medical History: Reports: Hx Coronary Artery Disease, Hx Heart Attack - 1990 & 1995, Hx Hypercholesterolemia, Hx Hypertension Denies: Hx Congestive Heart Failure Pulmonary Medical History: Denies: Hx Asthma, Hx Bronchitis, Hx COPD, Hx Pneumonia, Hx Tuberculosis Neurological Medical History: Denies: Hx Seizures Renal/ Medical History: Denies: Hx Benign Prostatic Hyperplasia, Hx End Stage Renal Disease, Hx Kidney Stones, Hx Peritoneal Dialysis GI Medical History: Denies: Hx Cirrhosis, Hx Gastroesophageal Reflux Disease, Hx Ulcer Musculoskeletal Medical History: Denies Hx Arthritis, Denies Hx Multiple Sclerosis Psychiatric Medical History: Denies: Hx Bipolar Disorder, Hx Depression, Hx Schizophrenia Past Surgical History: Reports: Hx Cardiac Surgery - Stent times 3 - Immunizations Hx Diphtheria, Pertussis, Tetanus Vaccination: Yes Hx Pneumococcal Vaccination: 07/27/15 Review of Systems - Review of Systems Constitutional: denies: Fever EENT: No symptoms reported Cardiovascular: See HPI Respiratory: No symptoms reported Gastrointestinal: No symptoms reported Genitourinary: No symptoms reported Male Genitourinary: No symptoms reported Musculoskeletal: No symptoms reported Skin: No symptoms reported Hematologic/Lymphatic: No symptoms reported Neurological/Psychological: No symptoms reported Physical Exam - Vital signs Vitals: Temp Pulse Resp BP Pulse Ox 98.0 F 66 18 117/77 98 06/24/19 22:53 06/24/19 22:53 06/24/19 22:53 06/24/19 22:53 06/24/19 22:53 - Notes Notes: GENERAL: Alert, interacts well. No acute distress. Handcuffed HEAD: Normocephalic, atraumatic. EYES: Pupils equal, round, and reactive to light. Extraocular movements intact. ENT: Oral mucosa moist, tongue midline. NECK: Full range of motion. Supple. Trachea midline. LUNGS: Clear to auscultation bilaterally, no wheezes, rales, or rhonchi. No respiratory distress. HEART: Regular rate and rhythm. No murmur ABDOMEN: Soft, non-tender. Non-distended. Bowel sounds present in all 4 quadrants. EXTREMITIES: Moves all 4 extremities spontaneously. No edema, normal radial and dorsalis pedis pulses bilaterally. No cyanosis. BACK: no cervical, thoracic, lumbar midline tenderness. No saddle anesthesia, normal distal neurovascular exam. NEUROLOGICAL: Alert and oriented x3. Normal speech. cranial nerves II through XII grossly intact PSYCH: Normal affect, normal mood. SKIN: Warm, dry, normal turgor. No rashes or lesions noted. Course - Re-evaluation Re-evalutation: 06/25/19 05:37 Patient was recently admitted to this facility with a negative cardiac cath. Patient voices he did follow-up with Dr. Villegas and is taking his medication as prescribed. Patient is more interested in watching television then speaking with me about his chest pain. At one point patient laughs that something on the television and asks me to repeat my question. Patient's initial EKG shows an atrial paced rhythm rate of 65, QTC 441, no ST segment elevations or depressions noted. Right bundle branch block Patient is underwent 2- delta troponins in the emergency department. Repeat EKG is unchanged from prior. I have discussed this case at length with my attending Dr. King. He is stating the patient can be discharged back to the custodial follow-up with cardiology. Patient continues without any chest pain through entire stay in the emergency department. Upon reassessment of the patient he is sleeping in bed in no apparent distress. Easily arousable to verbal stimuli. - Vital Signs Vital signs: Temp Pulse Resp BP Pulse Ox 98.0 F 66 15 114/76 97 06/24/19 22:53 06/24/19 22:53 06/25/19 03:01 06/25/19 03:01 06/25/19 03:01 - Laboratory Result Diagrams: 06/24/19 01:15 06/24/19 01:15 Laboratory results interpreted by me: 06/24/19 01:15 RBC 4.24 L Hgb 13.3 L Plt Count 145 L Discharge - Discharge Clinical Impression: Chest pain Qualifiers: Chest pain type: unspecified Qualified Code(s): R07.9 - Chest pain, unspecified Condition: Stable Disposition: HOME, SELF-CARE Instructions: Chest Pain of Unclear Cause ([facility]) Additional Instructions: As we discussed you have been seen and treated in the emergency department for your chest pain. Please make sure you follow-up with cardiology in the next 24 to 48 hours. Please return to the emergency room should he develop any chest pain. Referrals: LEEANN CANALES MD [Primary Care Provider] - Follow up as needed
[2019-06-25 05:43] LABS: INTERNATIONAL RATION (INR) 1.33; PROTHROMBIN TIME 16.6 SEC (11.4-15.4)
[2019-06-25 05:44] LABS: PARTIAL THROMBOPLASTIN TIME 37.9 SEC (23.5-35.8)
[2019-06-25 06:06] VITALS: BP 122/83
--- NOTE | 2019-06-25 07:00 | EKG REPORT ---
SEVERITY:- ABNORMAL ECG - ATRIAL-PACED RHYTHM RIGHT BUNDLE BRANCH BLOCK : Confirmed by: Enrique Hernandez MD 25-Jun-2019 06:59:00
== END 2019-06-25 06:04 | disposition home or self-care (01) ==
LOC: ER 22:47
DX: R07.9 Chest pain, unspecified (principal); I25.2 Old myocardial infarction; I10 Essential (primary) hypertension; E78.5 Hyperlipidemia, unspecified; I25.10 Atherosclerotic heart disease of native coronary artery without angina pectoris; E78.00 Pure hypercholesterolemia, unspecified
CPT/HCPCS: 36415; 71046; 80053; 82550; 82553; 84484; 85025; 85610; 85730; 93005; 93010; 99285